=== PATIENT | female | born 1965 | race African-American/Black ===

== ENCOUNTER 2016-08-23 08:18 | Inpatient (IN) | payer BC, MEDICARE ==
--- NOTE | ~2016-08-23 | CN ---
Consultation Report [facility] [address] [place]. [address] NAME: TAN HAWKINS : 67 STATUS : ADM IN PAT#: [id number] AGE: 51 ADM/REG DATE : 08/23/16 MR#: [id number] REPORT SERV DATE: 08/25/16 DICTATED BY: DATE: REPORT STATUS : Draft TRANSCRIBED BY: MODL DATE: 08/25/16 NEUROLOGY CONSULTATION DATE OF CONSULTATION: 08/25/2016 REASON FOR CONSULT: MS exacerbation. HISTORY OF PRESENT ILLNESS: This is a 51-year-old female who presented to [facility] on 08/23/2016 secondary to concern of numbness as well as weakness with the patient noted to have upper respiratory symptoms with the coughing, shortness of breath, as well as fever. The patient was also noted to have difficulty ambulating and decreased strength with the symptom onset, concern for possible MS exacerbation. The patient reports she was diagnosed with MS since 2007, with the patient currently not on any disease modifying therapy secondary to patient having difficulties with Tecfidera as well as Rebif and concern regarding side effects with the patient noted to have difficulties on 08/22/2016 and was admitted to the hospital on 08/23/2016. Since the hospital admission, the patient was noted to have no further febrile episodes and was noted to have the improving symptoms after Solu- Medrol therapy. No other recent change in medication was otherwise reported. No other complaints at this time. REVIEW OF SYSTEMS: Significant for nausea as well as fever, chills, recent sick contact, coughing, sneezing, or upper respiratory symptoms. Otherwise, negative except for those mentioned in the HPI. PAST MEDICAL HISTORY: Significant for multiple sclerosis as well as history of asthma and fibromyalgia, with the patient noted to have previous trial of Rebif and Tecfidera. The patient stopped MS therapy secondary to refractory therapy with Rebif as well as concern for possible PML. FAMILY HISTORY: Significant for hypertension. ALLERGIES: THE PATIENT WAS NOTED TO HAVE ALLERGY TO CODEINE, PROPOXYPHENE, AND PENICILLIN. SOCIAL HISTORY: Denies tobacco, alcohol, or recreational drug usage. MEDICATIONS: AT the time of evaluation, the patient's home medications consist of albuterol as well as Advair. PHYSICAL EXAMINATION: VITAL SIGNS: Overnight, the patient was noted to have vital signs with T-max of 98.4, heart rate of 74 to 96, respirations of 14 to 18, and blood pressure of 105 to 136 over 53 to 58. GENERAL: The patient is well developed, well nourished, in no acute distress. CARDIOVASCULAR: Regular rate and rhythm. No carotid bruits were otherwise auscultated. PULMONARY: Clear to auscultation bilaterally. Consultation Report [facility] [id number] [place]. [address] NAME: TAN HAWKINS : 67 STATUS : ADM IN PAT#: [id number] AGE: 51 ADM/REG DATE : 08/23/16 MR#: [id number] REPORT SERV DATE: 08/25/16 DICTATED BY: DATE: REPORT STATUS : Draft TRANSCRIBED BY: MODL DATE: 08/25/16 NEUROLOGICAL EXAMINATION: Generally, the patient is alert and oriented to person, place, year, and month and follows simple and 2-step commands. No dysarthria or aphasia was noted. At time of evaluation, no dysphonia was appreciated. Cranial nerves II through XII, pupils equal, round, and reactive to light. Extraocular eye movement was noted to be intact. No dysconjugate gaze was seen. No diplopia was reported by the patient. The patient reports symmetrical facial sensation and was noted to have mild decrease left facial weakness. Midline tongue. Normal palatal movement. Normal hearing. The patient demonstrated roughly 4+/5 right upper extremity strength and 5/5 left upper extremity strength with the patient noted to have 5/-5 left lower extremity proximal strength and roughly 4+/5 right lower extremity knee extensor strength. The patient demonstrated 5/5 right lower extremity proximal strength and 5/5 left lower extremity knee extensor. Reports a symmetrical sensation in bilateral lower extremities. Deep tendon reflex was mildly hyperreflexic. Upgoing toe and bilateral plantar reflexes. Otherwise, normal [id number] examination without ataxia. The patient was noted to have a mild circumduction gait and required holding on to IV pole for ambulation. LABORATORY STUDIES: Demonstrated white blood cell count of 13.3, hemoglobin of 13.1, hematocrit of 39.9, and platelet count of 339. Chemistry panel; sodium of 140, potassium 4.4, chloride 107, bicarb of 23, BUN of 14, creatinine of 0.74, glucose of 110, calcium of 8.3, magnesium of 2.3. Chest x-ray demonstrated no significant acute process with MRI of the lumbar spine demonstrated no significant abnormalities. MRI of the thoracic spine demonstrated previous MS lesions that are better identified with current MRI sequences, otherwise no active lesion or enhancing lesion was seen on MRI performed on 08/23/2016. IMPRESSION: Multiple sclerosis exacerbation. Day #2 of 3 IV Solu-Medrol was noted. Continue PT/ OT, and we are recommending outpatient physical therapy and rehab. We will also check MRI of the brain and C-spine with and without contrast for evaluation. Otherwise, okay to discharge after Solu-Medrol dosage on 08/26/2016 and MRI of the brain and C-spine evaluation. RECOMMENDATIONS: 1. Continue PT/OT in the hospital. 2. We will obtain outpatient rehab. 3. A day #2 out of 3 IV Solu-Medrol 250 mg IV daily. 4. We will obtain MRI of the brain and C-spine with and without contrast. 5. Okay to discharge the patient after IV Solu-Medrol on 08/26/2016 and after MRI studies from neuro standpoint. [facility]/JERI Consultation Report [place] [id number] [facility] [address] NAME: TAN HAWKINS : 67 STATUS : ADM IN PAT#: [id number] AGE: 51 ADM/REG DATE : 08/23/16 MR#: [id number] REPORT SERV DATE: 08/25/16 DICTATED BY: DATE: REPORT STATUS : Draft TRANSCRIBED BY: MODL DATE: 08/25/16 Rock Carpenter MD / [id number] CC: MD Marcial Carr M.D.
--- NOTE | ~2016-08-23 | HP ---
History And Physical [place] [id number] [facility] [place]. [address] NAME: TAN HAWKINS : 67 STATUS : ADM Magaly PAT#: [id number] AGE: 51 ADM/REG DATE : 08/23/16 MR#: [id number] REPORT SERV DATE: 08/24/16 DICTATED BY: WILBERTO VILLA DATE: 08/23/16 REPORT STATUS : Draft TRANSCRIBED BY: MODL DATE: 08/23/16 DATE OF ADMISSION: 08/23/2016 REASON FOR ADMISSION: Cough, shortness of breath, pleuritic chest pain, inability to walk, known history of MS with flare likely. Primary care doctor appears to be unclear, sees someone named Sheila Mendes. HISTORY OF PRESENT ILLNESS: This is a 51-year-old female. She suffers from obesity, asthma, fibromyalgia, apparently was diagnosed with multiple sclerosis in 2007. She had outpatient treatment failure to Rebif in the past. Followup with one outpatient neurologist, who started her on some disease modifying agents starting with G. She states that did not help. The patient states her MS only exacerbates when she has any type of concomitant comorbidities such as a viral infection. The patient states that her multiple sclerosis usually manifest as motor loss more so than sensory loss. Out of the blue yesterday the patient started having increased rhinorrhea, shortness of breath, pleuritic chest pain worsened with inspiration, cough, kind of an orangeish-brown productive cough, some mild remote wheezing. Has had positive sick contacts. Positive chills. Positive fevers. Positive nausea. No vomiting. No diarrhea. Positive chest pain as described. No chest pressure. Positive shortness of breath as described. The patient comes in with white count 11.3, apparently was 97% on room air. She was at one point thought to be dischargeable per ER, but then was not able to walk and as a result and requesting admission, which will readily except. The patient states she does not have a neurologist routinely as an outpatient. Procalcitonin indeterminate 0.13. The patient has been complaining of significant weakness and feeling like she has a viral syndrome. REVIEW OF SYSTEMS: Done, see HPI. Otherwise, negative. PAST MEDICAL HISTORY/PAST SURGICAL HISTORY: See above. ALLERGIES: APPARENTLY CODEINE, PROPOXYPHENE, PENICILLIN. FAMILY HISTORY: Hypertension in at least one parent. HOME MEDICATIONS: See MAR. We will continue what is relevant. SOCIAL HISTORY: Denies alcohol, tobacco, or drug use. OBJECTIVE: VITAL SIGNS: BP 130/65, 101.1 temp, 113 pulse, 16 respirations, 99% room air. GENERAL: No acute distress. HEENT: PERRLA. No scleral icterus. History And Physical [address] [address] NAME: TAN HAWKINS : 67 STATUS : ADM Magaly PAT#: [id number] AGE: 51 ADM/REG DATE : 08/23/16 MR#: [id number] REPORT SERV DATE: 08/24/16 DICTATED BY: WILBERTO VILLA DATE: 08/23/16 REPORT STATUS : Draft TRANSCRIBED BY: JERI DATE: 08/23/16 CARDIOVASCULAR: Tachycardic, muffled heart sounds, regular rhythm. RESPIRATORY: Decreased breath sounds bibasilarly. Limited by body habitus, some mild bibasilar crackles. ABDOMEN: Nontender, nondistended. Positive bowel sounds. EXTREMITIES: No edema. No ecchymosis. Nonpitting 1+ edema. NEURO: She is A and O x4/4. GCS is 15, but she does have a 4/5 bilateral lower extremity plantar flexion, dorsiflexion. She states she has decreased sensation when I do a finger-to gupta touch compared to her were superior lower extremities compared to inferior. PSYCH: Unable to assess given neuro status, is likely mildly anxious. LABORATORY DATA: White count is going to be 11.3, 12.7 hemoglobin as well as 275,000 platelets. 3.3 potassium, 0.94 creatinine, 8 BUN, 137 sodium, 128 sugar. EKG shows sinus tach. Otherwise, no ischemic ST-T changes. EKG poor film, under inspired. Otherwise, mild bibasilar alveolar infiltration. ASSESSMENT: 1. Sepsis. 2. Multiple sclerosis flare/exacerbation. 3. Pneumonia, rule out possible viral given immunocompromised state from multiple sclerosis, taking corticosteroids in the past. She apparently took prednisone 5 mg at home could see secondary bacterial infection. 4. Hypokalemia. 5. Inability to walk likely due to multiple sclerosis exacerbation. PLAN: We will go ahead and admit this patient under observation for immunocompromised state ruling out secondary bacterial infection indeterminate procalcitonin, started on IV Levaquin. Usually, we will give a gram of IV Solu-Medrol daily for five days. We will defer to Dr. Carpenter and her expertise. In the interim, place 500 mg IV bolus of Solu-Medrol at this time. Get an MRI of thoracolumbar spine with and without to rule out for any MS lesion to explain her inability to walk. If indeed, she is not able to have full motor control tomorrow, we will need physical therapy assessment for likely SNF or rehab need. We will also continue her long-acting beta agonist and inhaled corticosteroid for likely history of asthma as an outpatient. Give her Ativan prior to MRI given claustrophobia concerns, which she required in the past. Influenza here is negative per ED. All questions were answered. It took well over 60 minutes to do. Reference meevl and [employer]. Please see the rest of my orders. WST/MADYSONL Wilberto Villa, DO History And Physical [address] [address] NAME: TAN HAWKINS : 67 STATUS : ADM Magaly PAT#: [id number] AGE: 51 ADM/REG DATE : 08/23/16 MR#: [id number] REPORT SERV DATE: 08/24/16 DICTATED BY: WILBERTO VILLA DATE: 08/23/16 REPORT STATUS : Draft TRANSCRIBED BY: MODL DATE: 08/23/16 / [id number] CC: Murtaza Mclaughlin Jr, MD
--- NOTE | ~2016-08-23 | DS ---
Discharge Summary [facility] [id number] [place]. [address] NAME: TAN HAWKINS : 67 STATUS : DIS IN PAT#: [id number] AGE: 51 ADM/REG DATE : 08/23/16 MR#: [id number] REPORT SERV DATE: 08/27/16 DICTATED BY: ANA MORA DATE: 08/26/16 REPORT STATUS : Draft TRANSCRIBED BY: JERI DATE: 08/26/16 ADMISSION DATE: 08/23/2016 DISCHARGE DATE: 08/26/2016 DISCHARGE DIAGNOSES: 1. Multiple sclerosis flare. 2. Acute on chronic bronchitis. 3. Left ovarian cyst. DISCHARGE MEDICATIONS: Include: 1. Levaquin 750 mg p.o. daily. 2. Advair HFA two puffs inhaled b.i.d. 3. Albuterol nebulizer 3 mL inhaled every four to six hours p.r.n. DISPOSITION AND FOLLOWUP: The patient medically stable for discharge. Follow up with primary care physician in one week. Follow up with Neurology as directed. HISTORY AND PHYSICAL: Per initial assessment. DISCHARGE VITALS: Temperature 98.1, heart rate 82, blood pressure 108/51, respiratory rate 18, O2 saturation 97 on room air. DISCHARGE LABORATORIES: WBC of 9.5, hemoglobin 11.8, hematocrit 36.1, platelets 328. Sodium 141, potassium 3.9, chloride 108, bicarb 24, BUN 16, creatinine 0.76, vitamin B12 , folate 13.8, hemoglobin A1c of 5.9, troponin less than 0.02. TSH 0.486. IMAGING: Chest x-ray: No radiographic evidence of acute process. MRI of the lumbar spine, impression: Normal lumbosacral spine including mid T10-S1. Left ovarian cyst incidental finding on ultrasound on followup. Thoracic spine MRI, impression: Multifocal areas of involvement of MS. The cord overall shows some mild narrowing at about T4 level, but otherwise remains normal size. Images do not suggest an active area of demyelination. MRI of the brain and MRI of the cervical spine pending. HOSPITAL COURSE: A 51-year-old woman with past medical history of MS admitted to the hospital for MS flare. The patient was admitted and started on IV steroids. Neurology was consulted. Further details per consult note. The patient also had evidence of acute on chronic bronchitis, started on Levaquin and nebulizers. The patient responded well to medical management. On day of discharge, vitals stable. Once MRI of the brain and cervical spine were done and the patient has gotten last dose of IV steroids, the patient will be medically stable for discharge. Left ovarian cyst can be followed by primary care physician on followup. Outpatient PT ordered by Neurology. Further management as an outpatient. Follow up with Neurology as directed. Discharge Summary [place] [address] [address] NAME: TAN HAWKINS : 67 STATUS : DIS IN PAT#: [id number] AGE: 51 ADM/REG DATE : 08/23/16 MR#: [id number] REPORT SERV DATE: 08/27/16 DICTATED BY: ANA MORA DATE: 08/26/16 REPORT STATUS : Draft TRANSCRIBED BY: JERI DATE: 08/26/16 Total time for discharge planning 35 minutes. [facility]/JERI Sebas Saunders MD / [id number] CC: MD Marcial Carr M.D.
[~2016-08-23 08:18] MED LIST: ALEVE220 MG PO; BC POWDER PO; BIOFREEZE WITH120 GM TOP; CALCIUM PO; ENERGY VITAMIN PO; HARD NAILS PO; L20 PO; LEVAQUIN750 MG PO; MUCINEX D1 TAB PO; NORCO1 TA1 PO; OMNICEF300 PO; PROVHFA INH; RANITIDINE300 MG PO; SALONPAS-HOT TOP; TUMERIC PO
[2016-08-23 09:41] LABS: BASOPHILS 0.1 %; BASOPHILS ABSOLUTE 0.01 10/3/uL (0.0-0.16); EOSINOPHILS 0.2 %; EOSINOPHILS ABSOLUTE 0.02 10/3/uL (0.0-0.53); HEMATOCRIT 37.6 % (36.0-48.0); HEMOGLOBIN 12.7 g/dL (12.0-16.0); IMMATURE GRANULOCYTES 0.4 %; IMMATURE GRANULOCYTES ABSOLUTE 0.04 10/3/uL (0.0-0.11); LYMPHOCYTES 3.6 %; LYMPHOCYTES ABSOLUTE 0.41 10/3/uL (0.67-4.30); MEAN CORPUS HGB CONC 33.8 g/dL (32.0-36.0); MEAN CORPUSCULAR HEMOGLOB 29.8 pg (26.0-34.0); MEAN CORPUSCULAR VOLUME 88.3 fL (80-100); MEAN PLATELET VOLUME 10.3 fL (9.2-13.0); MONOCYTES 7.3 %; MONOCYTES ABSOLUTE 0.83 10/3/uL (0.21-1.20); NEUTROPHILS 88.4 %; NEUTROPHILS ABSOLUTE 9.99 10/3/uL (2.02-8.40); PLATELET COUNT 275 10/3/uL (150-400); RBC DISTRIBUTION WIDTH 13.8 % (12.0-16.0); RED CELL COUNT 4.26 10/6/uL (4.0-5.6); WHITE BLOOD CELLS 11.3 10/3/uL (4.5-10.5)
[2016-08-23 09:42] LABS: MANUAL DIFF NO %
[2016-08-23 09:57] LABS: PARTIAL THROMBO TIME 29.1 SEC (22.5-37.2)
[2016-08-23 09:58] LABS: A/G RATIO 0.8 (0.7-1.9); ALBUMIN 3.5 G/DL (3.5-5.0); ALKALINE PHOSPHATASE 105 U/L (45-117); BUN (BLOOD UREA NITROGEN) 8 MG/DL (6-23); CALCIUM, SERUM 8.5 MG/DL (8.5-10.4); CHLORIDE, SERUM 100 MMOL/L (96-112); CO2 (CARBON DIOXIDE) 24 MMOL/L (24-34); CREATININE 0.94 MG/DL (0.55-1.02); GFR AFRICAN AMERICAN 82 ML/MIN (>=60); GFR NON AFRICAN AMERICAN 71 ML/MIN (>=60); GLOBULIN 4.2 G/DL (2.5-4.1); GLUCOSE, SERUM 120 MG/DL (60-99); POTASSIUM, SERUM 3.3 MMOL/L (3.5-5.3); SGOT(AST) 11 U/L (5-40); SGPT(ALT) 22 U/L (5-65); SODIUM, SERUM 137 MMOL/L (135-148); TOTAL BILIRUBIN 0.7 MG/DL (0-1.2); TOTAL PROTEIN 7.7 G/DL (6.0-8.5)
[2016-08-23 10:00] LABS: INTERNATIONAL NORMAL RATI 1.1 UNITS (-); PROTIME (NOT ORD) 14.3 SEC (12.0-14.5)
[2016-08-23 10:43] LABS: LACTATE 1.5 MMOL/L (0.3-2.4)
[2016-08-23 11:04] LABS: PROCALCITONIN 0.13 ng/mL (<0.5)
[2016-08-23 12:52] LABS: ASCORBIC ACID (UR NOT ORDER) NEG (NEG); BILIRUBIN, URINE NEGATIVE (NEG); ER URINALYSIS TAT 0 Hrs 07 Mins; KETONE, URINE NEGATIVE (NEG); LEUKOCYTE ESTERASE(NOT OR NEG (NEG); NITRITE (URINE) NEG (NEG); WBC (NOT ORDERED) (RFLEX) 2 (0-5)
[2016-08-23] MEDS ORDERED: ADVAIR45P INH (13:49)
[2016-08-23] MEDS ORDERED: ALBUTEROL0.083 % INH (13:49)
[2016-08-23 13:55] LABS: INFLUENZA A SCREEN NEGATIVE (NEGATIVE); INFLUENZA B SCREEN NEGATIVE (NEGATIVE)
[2016-08-23 18:02] LABS: ULTRASENSITIVE TSH 0.486 MCIU/ML (0.358-3.740)
[2016-08-23 18:52] LABS: PROCALCITONIN 0.16 ng/mL (<0.5)
[2016-08-24 05:11] LABS: BASOPHILS 0 %; EOSINOPHILS 0 %; HEMOGLOBIN 12.2 g/dL (12.0-16.0); IMMATURE GRANULOCYTES 0.1 %; IMMATURE GRANULOCYTES ABSOLUTE 0.01 10/3/uL (0.0-0.11); LYMPHOCYTES 9.4 %; LYMPHOCYTES ABSOLUTE 0.68 10/3/uL (0.67-4.30); MEAN CORPUSCULAR VOLUME 87.9 fL (80-100); MEAN PLATELET VOLUME 10.6 fL (9.2-13.0); MONOCYTES 2.3 %; MONOCYTES ABSOLUTE 0.17 10/3/uL (0.21-1.20); NEUTROPHILS 88.2 %; PLATELET COUNT 309 10/3/uL (150-400); RED CELL COUNT 4.21 10/6/uL (4.0-5.6); WHITE BLOOD CELLS 7.3 10/3/uL (4.5-10.5)
[2016-08-24 05:12] LABS: MANUAL DIFF NO %
[2016-08-24 05:26] LABS: A/G RATIO 0.7 (0.7-1.9); ALKALINE PHOSPHATASE 101 U/L (45-117); CALCIUM, SERUM 8.4 MG/DL (8.5-10.4); CHLORIDE, SERUM 105 MMOL/L (96-112); CO2 (CARBON DIOXIDE) 23 MMOL/L (24-34); CREATININE 0.86 MG/DL (0.55-1.02); GFR AFRICAN AMERICAN 91 ML/MIN (>=60); GFR NON AFRICAN AMERICAN 79 ML/MIN (>=60); GLOBULIN 4.4 G/DL (2.5-4.1); PHOSPHORUS, SERUM 2.1 MG/DL (2.5-4.5); SGOT(AST) 13 U/L (5-40); SGPT(ALT) 23 U/L (5-65); SODIUM, SERUM 139 MMOL/L (135-148); TOTAL BILIRUBIN 0.4 MG/DL (0-1.2); TOTAL PROTEIN 7.4 G/DL (6.0-8.5); TROPONIN I <0.02 NG/ML (<0.05)
[2016-08-24 05:30] LABS: BUN (BLOOD UREA NITROGEN) 13 MG/DL (6-23); GLUCOSE, SERUM 146 MG/DL (60-99); POTASSIUM, SERUM 4.1 MMOL/L (3.5-5.3)
[2016-08-25 08:46] LABS: BUN (BLOOD UREA NITROGEN) 14 MG/DL (6-23); CALCIUM, SERUM 8.3 MG/DL (8.5-10.4); CHLORIDE, SERUM 107 MMOL/L (96-112); CO2 (CARBON DIOXIDE) 23 MMOL/L (24-34); CREATININE 0.74 MG/DL (0.55-1.02); GFR AFRICAN AMERICAN 109 ML/MIN (>=60); GFR NON AFRICAN AMERICAN 94 ML/MIN (>=60); GLUCOSE, SERUM 110 MG/DL (60-99); PHOSPHORUS, SERUM 3.2 MG/DL (2.5-4.5); POTASSIUM, SERUM 4.4 MMOL/L (3.5-5.3); SODIUM, SERUM 140 MMOL/L (135-148)
[2016-08-25 10:34] LABS: BASOPHILS 0.1 %; BASOPHILS ABSOLUTE 0.01 10/3/uL (0.0-0.16); EOSINOPHILS 0 %; HEMATOCRIT 39.9 % (36.0-48.0); HEMOGLOBIN 13.1 g/dL (12.0-16.0); IMMATURE GRANULOCYTES 0.5 %; IMMATURE GRANULOCYTES ABSOLUTE 0.06 10/3/uL (0.0-0.11); LYMPHOCYTES 15.3 %; LYMPHOCYTES ABSOLUTE 2.03 10/3/uL (0.67-4.30); MEAN CORPUS HGB CONC 32.8 g/dL (32.0-36.0); MEAN CORPUSCULAR HEMOGLOB 29.6 pg (26.0-34.0); MEAN CORPUSCULAR VOLUME 90.1 fL (80-100); MEAN PLATELET VOLUME 10.6 fL (9.2-13.0); MONOCYTES 8.3 %; MONOCYTES ABSOLUTE 1.11 10/3/uL (0.21-1.20); NEUTROPHILS 75.8 %; NEUTROPHILS ABSOLUTE 10.09 10/3/uL (2.02-8.40); PLATELET COUNT 339 10/3/uL (150-400); RBC DISTRIBUTION WIDTH 13.9 % (12.0-16.0); RED CELL COUNT 4.43 10/6/uL (4.0-5.6)
[2016-08-25 10:35] LABS: MANUAL DIFF NO %; WHITE BLOOD CELLS 13.3 10/3/uL (4.5-10.5)
[2016-08-26 06:36] LABS: BASOPHILS 0.1 %; BASOPHILS ABSOLUTE 0.01 10/3/uL (0.0-0.16); BUN (BLOOD UREA NITROGEN) 16 MG/DL (6-23); CALCIUM, SERUM 7.9 MG/DL (8.5-10.4); CHLORIDE, SERUM 108 MMOL/L (96-112); CO2 (CARBON DIOXIDE) 24 MMOL/L (24-34); CREATININE 0.76 MG/DL (0.55-1.02); EOSINOPHILS 0 %; GFR AFRICAN AMERICAN 106 ML/MIN (>=60); GFR NON AFRICAN AMERICAN 91 ML/MIN (>=60); GLUCOSE, SERUM 113 MG/DL (60-99); HEMATOCRIT 36.1 % (36.0-48.0); HEMOGLOBIN 11.8 g/dL (12.0-16.0); IMMATURE GRANULOCYTES 0.2 %; IMMATURE GRANULOCYTES ABSOLUTE 0.02 10/3/uL (0.0-0.11); LYMPHOCYTES 13.5 %; LYMPHOCYTES ABSOLUTE 1.28 10/3/uL (0.67-4.30); MEAN CORPUS HGB CONC 32.7 g/dL (32.0-36.0); MEAN CORPUSCULAR HEMOGLOB 28.9 pg (26.0-34.0); MEAN CORPUSCULAR VOLUME 88.5 fL (80-100); MEAN PLATELET VOLUME 10.8 fL (9.2-13.0); MONOCYTES 8.9 %; MONOCYTES ABSOLUTE 0.84 10/3/uL (0.21-1.20); NEUTROPHILS 77.3 %; NEUTROPHILS ABSOLUTE 7.33 10/3/uL (2.02-8.40); PLATELET COUNT 328 10/3/uL (150-400); POTASSIUM, SERUM 3.9 MMOL/L (3.5-5.3); RBC DISTRIBUTION WIDTH 14.3 % (12.0-16.0); RED CELL COUNT 4.08 10/6/uL (4.0-5.6); SODIUM, SERUM 141 MMOL/L (135-148); WHITE BLOOD CELLS 9.5 10/3/uL (4.5-10.5)
[2016-08-26 06:38] LABS: FOLATE 13.8 NG/ML (>5.2)
[2016-08-26 06:40] LABS: MANUAL DIFF NO %
[2016-08-26 06:47] LABS: PROCALCITONIN <0.05 ng/mL (<0.5)
[2016-08-26] MEDS ORDERED: LEVAQUIN750 MG PO (15:17)
[2016-08-26] MEDS ORDERED: NORCO1 TA1 PO (16:47)
== END 2016-08-26 16:56 | disposition home or self-care (01) | DRG 60 ==
LOC: ER 08:18 → CDU1 15:28
PROVIDERS: Emergency Medicine; Internal Medicine
DX: G35 Multiple sclerosis (principal); E87.6 Hypokalemia; J20.9 Acute bronchitis, unspecified; J41.1 Mucopurulent chronic bronchitis; J45.909 Unspecified asthma, uncomplicated; N83.202 Unspecified ovarian cyst, left side; Z88.5 Allergy status to narcotic agent; Z88.0 Allergy status to penicillin; Z82.49 Family history of ischemic heart disease and other diseases of the circulatory system
CPT/HCPCS: 70553; 71010; 72156; 72157; 72158; 80048; 80053; 81001; 82607; 82746; 82962; 83036; 83605; 83735; 84100; 84145; 84443; 84484; 85025; 85610; 85730; 87040; 87804; 93005; 94640; 97116-GP; 97161-GP; 99285; A9270-GY; A9577; J1170; J1956; J2405; J2930